=== PATIENT | female | born 1955 | race Caucasian/White ===

== ENCOUNTER → 2017-04-14 | Outpatient (CLI) | payer OTHER ==
[2017-04-14 12:55] LABS: BASO % 0.5 %; BASO ABS # 0.03 K/uL (0-0.2); COMPLETE YES; EOS % 2.1 %; HEMATOCRIT 48.1 % (37-47); IG% 0.2 %; LYMPH % 37.9 %; LYMPH ABS # 2.34 K/uL (1.2-3.4); MEAN CELL VOLUME 98.2 fL (80-100); MEAN CORPUSCULAR HEMOGLOBIN 31.6 pg (25-34); MEAN CORPUSCULAR HGB CONC 32.2 g/dl (32-36); MEAN PLATELET VOLUME 10.6 fL (7.4-10.4); MONO % 7.6 %; NEUT % 51.7 %; PLATELET COUNT 305 K/uL (130-400); WHITE BLOOD COUNT 6.17 K/uL (4.8-10.8)
[2017-04-14 13:24] LABS: ALT/SGPT 45 U/L (12-78); AST/SGOT 20 U/L (15-37); BLOOD UREA NITROGEN 25 mg/dl (7-18); BUN/CREATININE RATIO 23.9 (10-20); CALCIUM 10.2 mg/dl (8.5-10.1); CARBON DIOXIDE 33 mmol/L (21-32); CHLORIDE 104 mmol/L (98-107); CREATININE 1.03 mg/dl (0.60-1.20); GLUCOSE 99 mg/dl (70-99); POTASSIUM 3.3 mmol/L (3.5-5.1); SODIUM 143 mmol/L (136-145)
[2017-04-14 13:35] LABS: ALB/GLOB RATIO 1.2 (0.9-2); ALKALINE PHOSPHATASE 81 U/L (45-117); CHOLESTEROL 220 mg/dl (0-200); CHOLESTEROL/HDL RATIO 3.4; HDL CHOLESTEROL 64 mg/dl; TRIGLYCERIDES 114 mg/dl (0-150); VERY LOW DENSITY LIPOPROT CALC 23 mg/dl
== END | disposition home or self-care (01) ==
LOC: C.LABSPEC 12:27
PROVIDERS: ATTEND Internal Medicine
DX: Z00.01 Encounter for general adult medical examination with abnormal findings (principal); E66.09 Other obesity due to excess calories; I10 Essential (primary) hypertension

== ENCOUNTER → 2017-04-17 | Outpatient (CLI) | payer OTHER ==
--- NOTE | 2017-04-18 14:33 | MAMMOGRAPHY REPORT ---
BILATERAL DIGITAL SCREENING MAMMOGRAM TOMOSYNTHESIS WITH CAD: 04/17/2017 CLINICAL HISTORY: Routine screening. Patient has no complaints. TECHNIQUE: Breast tomosynthesis in addition to standard 2D mammography was performed. Current study was also evaluated with a Computer Aided Detection (CAD) system. COMPARISON: Comparison is made to exams dated: 10/11/2012 mammogram, 06/27/2011 ultrasound - [facility], 10/07/2008, 04/21/2009 mammogram, 04/21/2009 ultrasound, and 03/31/2010 mammogram - [facility]. BREAST COMPOSITION: The tissue of both breasts is heterogeneously dense, which may obscure small mas ses. FINDINGS: There is a 6 mm focal asymmetry in the 12:00 posterior right breast, for which additional spot compression views and possible ultrasound are recommended. No other new suspicious mass, asymmetry, area of distortion or suspicious microcalcifications is seen bilaterally. There are mild vascular calcifications in the breasts. IMPRESSION: ACR BI-RADS CATEGORY 0: INCOMPLETE EVALUATION: NEED ADDITIONAL IMAGING EVALUATION The 6 mm focal asymmetry in the 12:00 right breast needs additional evaluation. The patient will be called to schedule an appointment. Approximately 10% of breast cancers are not detected with mammography. A negative mammographic report should not delay biopsy if a clinically suggestive mass is present. Tiara Landin M.D. ay/:04/17/2017 16:07:49 Specialty Development Consultant: Aidee MARCELO)(David), [facility] letter sent: Addl Imaging 0 BI-RADS Code: ACR BI-RADS Category 0: Incomplete Evaluation: Need Additional Imaging Evaluation
== END | disposition home or self-care (01) ==
LOC: C.MAMM 15:45
PROVIDERS: ATTEND Internal Medicine
DX: Z12.31 Encounter for screening mammogram for malignant neoplasm of breast (principal); N64.89 Other specified disorders of breast

== ENCOUNTER → 2017-05-09 | Outpatient (CLI) | payer OTHER ==
--- NOTE | 2017-05-09 15:11 | MAMMOGRAPHY REPORT ---
UNILATERAL RIGHT DIGITAL DIAGNOSTIC MAMMOGRAM TOMOSYNTHESIS WITH CAD AND TARGETED RIGHT ULTRASOUND: 1 07/10/2016 CLINICAL HISTORY: Callback from screening mammography for a 6 mm focal asymmetry versus mass in the 1 2:00 posterior right breast. TECHNIQUE: Spot compression right CC and MLO 2-D and tomosynthesis images were obtained. COMPARISON: Comparison is made to exams dated: 04/17/2017 mammogram, 10/11/2012 mammogram, 06/27/2011 ultrasound, 12/22/2010 ultrasound, and 12/22/2010 mammogram - [facility]. BREAST COMPOSITION: The tissue of the right breast is heterogeneously dense, which may obscure small masses. FINDINGS: The additional spot compression tomosynthesis images of the right breast demonstrate a pers istent oval mass in the 12:00 posterior right breast, located 6.6 cm distal to the nipple in the CC p rojection, measuring 5.9 x 4.5 x 4.6 mm. No associated architectural distortion or microcalcificatio n. No other obvious mass, focal area of distortion or asymmetry is identified. Further evaluation w ith ultrasound was performed. Targeted ultrasound was performed in the superior right breast 11:00, 12:00 and 1:00 axes. In the 12 :00 breast, 2 cm from the nipple, there is an oval parallel circumscribed hypoechoic solid versus cys tic mass with mild posterior acoustic enhancement appreciated suggesting this may represent a cyst. It measures 5.0 x 3.0 x 5.4 mm and this may correspond to the circumscribed oval mammographic mass se en on screening. Incidentally identified in the 11:00 right breast, 2 cm from the nipple, is an isoe choic solid appearing mass measuring 11.0 x 3.2 mm. This is indeterminate given the solid nature, an d definitive characterization with an ultrasound guided core biopsy is recommended. At the same time as core biopsy, the suspected cystic mass in the 12:00 right breast, 2 cm from the nipple should als o be aspirated to ensure collapse/resolution after aspiration. IMPRESSION: ACR BI-RADS CATEGORY 4: SUSPICIOUS, TARGETED ULTRASOUND ACR BI-RADS CATEGORY 4: SUSPICIO US 1. Ultrasound-guided core biopsy is recommended for an incidentally identified 11 mm solid appearing mass in the 11:00 right breast, 2 cm from the nipple. 2. There is a hypoechoic possibly cystic mass in the 12:00 right breast, 2 cm from the nipple on ult rasound measuring 5.4 mm, thought to correlate with a persistent oval circumscribed mammographic mass in the 12:00 axis identified on the screening mammogram and additional spot compression views. At t he time of core biopsy in the 11:00 right breast, ultrasound guided cyst aspiration should be perform ed to ensure cystic nature and resolution of this mass otherwise core needle biopsy will be needed. Also, post procedure tomosynthesis mammograms should be obtained to ensure mammographicsonographic c orrelation. These results and recommendations were discussed with the patient at the time of the exam. She tenta tively scheduled the right breast ultrasound guided core biopsy and cyst aspiration prior to leaving our department. Approximately 10% of breast cancers are not detected with mammography. A negative mammographic report should not delay biopsy if a clinically suggestive mass is present. Tiara Landin M.D. ay/:05/09/2017 12:30:23 Head Tennis Coach: Aidee RUIZ(R)(David), [facility] letter sent: Abnormal 4/5 BI-RADS Code: ACR BI-RADS Category 4: Suspicious Ultrasound BI-RADS: ACR BI-RADS Category 4: Suspici ous
== END | disposition home or self-care (01) ==
LOC: C.MAMM 08:42
PROVIDERS: ATTEND Internal Medicine
DX: N63.0 Unspecified lump in unspecified breast (principal)

== ENCOUNTER → 2017-05-24 | Outpatient (CLI) | payer OTHER ==
--- NOTE | 2017-05-24 10:45 | Discharge Instructions ---
Discharge Instructions Procedure Procedure Date: May 24, 2017. Reason for visit: Right Masses/Cyst Aspiration. Discharge Discharge Date: May 24, 2017. Discharge Diagnosis: post right breast ultrasound guided cyst aspiration and core biopsy Instructions Activity Recommendations: Additional Limitations (see below) Return to School/Work: no limitations Recommended Home Diet: No Limitations Provider Instructions: ACTIVITY RECOMMENDATIONS: * No lifting, pushing, pulling or exercising the affected side for three days. RETURN TO SCHOOL/WORK: * You may return to work/school after the procedure, but do not perform any strenuous activities for 24 to 48 hours. MEDICATIONS: * Tylenol (two 325 mg) every four to six hours if needed for mild pain (if not allergic to Tylenol). DIET: * Resume previous diet. SPECIAL CARE INSTRUCTIONS: * Keep biopsy site dry for 24 hours. May shower after 24 hours, but do not soak (bathe) incision. * May remove Tegaderm (plastic patch) tomorrow AFTER showering. * Leave the steri-strips on for one week. Allow the steri-strips to fall off by themselves. If not off after one week, you may remove them. You may place a Bandaid crosswise over the strips, if desired. * Apply ice 10 minutes on and 10 minutes off as needed. * Wear a bra at bedtime to sleep more comfortably for 2-3 days. * Your referring physician should have the results after approximately 5 to 7 business days. * Call for unusual bleeding, fever, drainage, etc or if you have any questions call [phone] during normal business hours or after hours call Dr Landin, . FOLLOW UP VISIT: Follow-up with Referring Physician as scheduled. Edilson Dawkins Recommendations: Call your doctor if: * Temperature above 101 degrees * Pain not relieved by pain medicine ordered * There is increased drainage or redness from any incision * You have any unanswered questions or concerns. Your Doctors Instructions noted above were prepared by provider Tiara Landin. Patient Signature Section: Patient Instructions Signature Page Aspen Anna Marie Patient (or Guardian) Signature/Date: I have read and understand the instructions given to me by my caregivers. Caregiver/RN/Doctor Signature/Date: The above-named patient and/or guardian has received patient instructions on this date. + Original Patient Signature Page (only) stays with chart. Please make copy for patient.
--- NOTE | 2017-05-24 13:39 | MAMMOGRAPHY REPORT ---
ASPIRATION: 05/24/2017 CLINICAL HISTORY: Cystic appearing mass in the 12:00 right breast, 2.5 centimeters deep to the dermis abutting the pectoralis muscle, and solid appearing mass in the 11:00 to 12:00 right breast, 2 cm fr om the nipple. Patient presents for ultrasound-guided cyst aspiration of the cystic appearing mass a nd core biopsy of the solid appearing mass. Please refer to report from right breast ultrasound guided core biopsy performed at the same time for full detail. IMPRESSION: ASPIRATION Please refer to report from right breast ultrasound guided core biopsy performed at the same time for full detail. Tiara Landin M.D. ay/:05/24/2017 12:37:28 Spine Supervisor: Brinda RUIZ([place])(M), [facility]
--- NOTE | 2017-05-24 13:40 | MAMMOGRAPHY REPORT ---
ULTRASOUND GUIDED BIOPSY RIGHT BREAST: 05/24/2017 CLINICAL HISTORY: 61-year-old woman recently called back from screening mammography for a 6 mm possib le mass in the 12:00 right breast posteriorly. Diagnostic mammograms and ultrasound demonstrated a p ersistent mammographic mass thought to correspond to a cystic appearing mass in the 12:00 right breas t on ultrasound. Incidentally seen while scanning for the mammographic mass is a solid appearing mas s in the 11:00 to 12:00 right breast, 2 cm from the nipple, for which ultrasound guided core biopsy w as recommended. COMPARISON: Comparison is made to exams dated: 05/24/2017 aspiration, 05/09/2017 ultrasound, 017 mammogram, 04/17/2017 mammogram, 10/11/2012 mammogram, and 06/27/2011 ultrasound - [facility]. PATIENT CONSENT: The procedure of both ultrasound-guided cyst aspiration and ultrasound-guided core b iopsy were explained to the patient as well as risks, benefits and alternatives of the procedures. In formed consent was obtained both verbally and in writing. Specific risks to this procedure include: bleeding, infection, puncture of adjacent structure, nontarget biopsy, sampling error, pain, metal al lergy and medication reaction. PROCEDURE DESCRIPTIONS: A time out was performed and the right breast was agreed as the site of both facet aspiration and core needle biopsy. First the cyst aspiration was performed in the 12:00 right breast. The skin was prepped and draped i n the usual sterile fashion. The hypoechoic to anechoic cystic appearing mass in the 12:[address] was identified and targeted for cyst aspiration. 1% buffered lidocaine with and without epinephri ne was administered as local anesthesia. A 22-gauge needle was advanced within the suspected cyst an d is collapsed. Pre-and post procedure images document complete resolution of the mass after aspirat ion. A small amount of clear, straw-colored fluid was obtained and rinsed in CytoLyt then sent to [facility] pathology department for cytologic analysis. Then the ultrasound-guided core biopsy in the 11 to 12:00 right breast, 2 cm from the nipple was perf ormed. The isoechoic to hypoechoic solid appearing lobulated mass was identified and targeted for bi opsy. Additional subcutaneous and intraparenchymal 1% buffered lidocaine, with and without epinephri ne, was administered as local anesthesia. A skin incision was made. Through the incision, 5 samples were taken with a 14 gauge Achieve biopsy device. A ribbon shaped metallic marker was placed at the b iopsy site. Hemostasis was achieved after manual compression. The patient tolerated the procedure wel l and there was no immediate complication. The samples were sent to the pathology department in an a ppropriately labeled container. Postprocedure right CC and ML tomosynthesis images were obtained. There is resolution of the 6 mm ci rcumscribed mass in the 12:00 posterior right breast, confirming mammographicsonographic correlation of the aspirated cyst. A biopsy marker clip is seen more anteriorly in the 12:00 right breast at th e site of the biopsied solid appearing mass identified incidentally on ultrasound. IMPRESSION: ULTRASOUND GUIDED BIOPSY 1. Status post ultrasound-guided cyst aspiration to resolution of a cystic masses in the 12:00 deep right breast, which correlates with a mammographic mass, initially identified on the 04/17[place] [facility]. 2. Status post ultrasound-guided core biopsy of an incidentally identified solid appearing mass in t he 11 to 12:00 right breast. 3. Pending benign pathology and cytology results, can resume routine screening mammography in one ye ar. The patient will receive notification of the biopsy results from her referring physician. Tiara Landin M.D. ay/:05/24/2017 12:46:27 Cage Loader: Brinda MARCELO)(David), [facility]
--- NOTE | 2017-05-24 13:41 | MAMMOGRAPHY REPORT ---
UNILATERAL RIGHT DIGITAL DIAGNOSTIC MAMMOGRAM TOMOSYNTHESIS: 05/24/2017 CLINICAL HISTORY: Status post ultrasound-guided cyst aspiration and ultrasound-guided core biopsy in the 11:00 to 12:00 right breast. Please refer to the report from right breast ultrasound guided core biopsy performed at the same time for full detail. IMPRESSION: POST PROCEDURE IMAGING FOR MARKER PLACEMENT Please refer to the report from right breast ultrasound guided core biopsy performed at the same time for full detail. Approximately 10% of breast cancers are not detected with mammography. A negative mammographic report should not delay biopsy if a clinically suggestive mass is present. Tiara Landin M.D. ay/:05/24/2017 12:36:16 Tentering Machine Feeder: Brinda RUIZ([place])(M), [facility] BI-RADS Code: Post Procedure Imaging For Marker Placement
== END | disposition home or self-care (01) ==
LOC: C.MAMM 09:12
PROVIDERS: ATTEND Internal Medicine
DX: N63.0 Unspecified lump in unspecified breast (principal); N60.01 Solitary cyst of right breast

== ENCOUNTER → 2017-06-16 | Outpatient (CLI) | payer OTHER | END | disposition home or self-care (01) | LOC: C.PAPS 14:36 | PROVIDERS: ATTEND Internal Medicine | DX: Z12.4 Encounter for screening for malignant neoplasm of cervix (principal) ==